=== PATIENT | female | born 1975 | race Caucasian/White ===

== ENCOUNTER 2020-10-26 02:08 | Outpatient (CLI) | payer BC, SELFPAY ==
[2020-10-26 11:15] LABS: Source Nasal/Nares
[2020-10-26 18:41] LABS: COVID-19 PCR Negative (Negative)
== END 2020-10-26 02:09 | disposition home or self-care (01) ==
PROVIDERS: PCP Emergency Medicine; Visit Provider Student in an Organized Health Care Education/Training Program
DX: Z20.822 Contact with and (suspected) exposure to COVID-19 (principal); Z01.818 Encounter for other preprocedural examination
CPT/HCPCS: 87635

== ENCOUNTER 2020-10-30 08:28 | Day surgery (SDC) | payer BC, SELFPAY ==
--- NOTE | 2020-10-30 07:25 | W.PM.DSUDISC ---
Discharge Plan Disposition Patient Disposition: HOME Condition: Good Discharge Details Reason For Visit: Right carpal tunnel syndrome Attending Provider: Gato Richardson Primary Care Provider: Dario Gale Home Meds and New Rx's Prescriptions: New acetaminophen 500 mg tablet 500 mg PO Q6H PRN (Reason: pain) Qty: 60 RF: 2 hydrocodone-acetaminophen 5-325 mg tablet 1 tab PO Q6H PRN (Reason: severe pain) Qty: 4 RF: 0 ibuprofen 600 mg tablet 600 mg PO TID PRN (Reason: pain) Qty: 60 RF: 0 Continued omeprazole 20 mg capsule,delayed release(DR/EC) 20 mg PO DAILY RF: 0 Discharge Instructions Stand Alone Forms: Debra Marc Tunnel Release Referrals: Gato Richardson MD [ [facility] STAFF PHYSICIAN] - Activity:: Elevate Remove Dressings/Wound Care:: 72 hours Shower/Bathe:: 72 hours Diet:: As Tolerated Discharge Orders Discharge Orders: Discharge Order (Routine); Ordered 10/30/20 Ordered By: Shonda Brown DS: Diagnosis Discharge Diagnosis (1) Right carpal tunnel syndrome: Status: Acute
[2020-10-30 08:50] VITALS: BP 111/56; PULSE 63; RESP 18; TEMP 36.6; O2SAT 100
[2020-10-30] MEDS: Lactated Ringers 1,000 ML 80 ML IV (09:19)
--- NOTE | 2020-10-30 09:23 | W.ANESPRE ---
General Info Date of Service Date Performed: 10/30/20 Height: 5 ft 2 in Weight: 77.5 kg Body Mass Index (BMI): 31.2 Surgical Procedure: Operation Date: 10/30/20 09:55 Proposed Procedures Side Surgeon p Wrist ECTR Right Gato Richardson MD Meds Allergies and Home Medications Allergies Allergy/AdvReac Type Severity Reaction Status Date / Time ampicillin Allergy Verified 10/30/20 08:47 Home Medication Medication Instructions Recorded omeprazole 20 mg capsule,delayed 20 mg PO DAILY 09/21/20 release acetaminophen 500 mg PO Q6H PRN #60 tab 10/30/20 hydrocodone-acetaminophen 1 tab PO Q6H PRN #4 tab 10/30/20 ibuprofen 600 mg PO TID PRN #60 tab 10/30/20 Current Visit Medications: Current Medications Generic Name Dose Route Start Last Admin Trade Name Freq PRN Reason Stop Dose Admin Acetaminophen 650 mg 10/30/20 07:23 Acetaminophen 325 Mg Tab PO Q4H PRN PRN Ringer's Solution 1,000 mls @ 80 mls/hr 10/30/20 06:00 10/30/20 09:19 IV 11/28/20 23:59 80 mls/hr INFUSION DARELL Administration IV Miscellaneous Supplies 1 each 10/30/20 06:00 Iv Access IV 11/28/20 23:59 DIRECTED DARELL Oxycodone HCl 5 mg 10/30/20 07:23 Oxycodone 5 Mg Tab PO Q3H PRN PRN Pain Sodium Chloride 0 ml 10/30/20 06:00 Normal Saline Flush 10 Ml Syr IV 11/28/20 23:59 PRN PRN Sodium Chloride 0 ml 10/30/20 06:00 Normal Saline 10 Ml Vial IJ 11/28/20 23:59 DIRECTED PRN Sterile Water 0 ml 10/30/20 06:00 Water,Injection,Sterile 10 Ml Vial IJ 11/28/20 23:59 DIRECTED PRN PFSH Active Problems Active Problems: Problem Status Onset Code Right carpal tunnel syndrome G56.01 Right lateral epicondylitis M77.11 Medical History Medical History Acid reflux Kidney stones with removal Right carpal tunnel syndrome Right lateral epicondylitis Surgical History Surgical History Hx of section Hx of knee surgery 2011 Hx of laparoscopy Tobacco Smoking/Tobacco Use Status: Former Tobacco Use Alcohol Alcohol Intake: current Alcohol intake frequency: holidays/special occasions only Substance Use Substance use type: does not use Vital Signs and Lab Results Vital Signs Most Recent Vital Signs in EMR: Most Recent Vital Signs Temp Pulse Resp BP Pulse Ox 36.6 C 63 18 111/56 L 100 10/30/20 08:50 10/30/20 08:50 10/30/20 08:50 10/30/20 08:50 10/30/20 08:50 Point of Care Results Point of Care Results: POC- Test(urine) Negative 10/30/20 09:20 Lab Results Blood Type / Crossmatch: No Data to Display Complete Blood Count: No Data to Display Complete Metabolic Panel: No Data to Display Liver Function Panel: No Data to Display Coagulation Panel: No Data to Display Cardiac Panel: No Data to Display Arterial Blood Gas: No Data to Display Venous Blood Gas: No Data to Display Pancreas Panel: No Data to Display Thyroid Panel: No Data to Display Infectious Disease: Coronavirus (COVID-19)(PCR) Negative (Negative) 10/26/20 10:41 10/26/20 Coronavirus 2019 Source Nasal/nares 10/26/20 10:41 10/26/20 Blood Cultures: No Data to Display Toxicology Panel: No Data to Display Panel: No Data to Display Anesthesia Assessment and Plan Anesthesia History Personal History: No History of Anesthesia Complications Family History: No Family History of Anesthesia Complications Exercise Tolerance Exercise Tolerance: Metabolic Equivalents>4 Pertinent Negatives Pertinent Negatives: No Symptoms of GERD, No Major Cardiovascular Symptoms or Complaints and No Major Pulmonary Symptoms or Complaints Cardiac & Pulmonary Exam Cardiac Exam: Normal S1/S2 Heart Sounds Pulmonary Exam: Clear Bilateral Breath Sounds Airway Exam Known Difficult Airway: No Mallampati Class: 1 Mouth Opening: Normal (> 3cm) Thyromental Distance: Greater than 3 cm Neck Range of Motion: Full ROM Neck Circumference: Normal Teeth Condition: Removable Dentures/Plates Upper and Edentulous ASA Classification ASA Score: ASA 2 Emergency Case?: No NPO Status NPO Status: NPO Clears >2 hours, Solids >8 hours Status Status: Not Relevant due to Medical History and Negative HCG Anesthesia Plan Resuscitation Status: Full Code Anesthesia Technique: General Anesthesia Airway Planned: Natural Airway Monitors Used: Standard Monitors
[2020-10-30 09:26] VITALS: BMI 31.2
--- NOTE | 2020-10-30 09:50 | HPE_ITS ---
Date of service: 10/30/20 Time of Service: 09:50 Assessment and Plan Assessment and plan (1) Right carpal tunnel syndrome: Status: Acute Assessment and plan: Alba 45-year-old who has right carpal tunnel syndrome. Please see the previous office note for complete details of her history and a complete clinical examination. She is doing well today without any other medical changes. She previously agreed to proceed with carpal tunnel release. Once again, I discussed the technical details of carpal tunnel release and that I perform an endoscopic release, but would make a larger, open, incision if necessary for visualization. I discussed the risks of the procedure to include, but not limited to, bleeding, infection, palmar pain, stiffness, damage to nerves, damage to vessels, damage to tendons, weakness, recurrence, and incomplete release. Given these risks, Alba desires to proceed. History of Present Illness History of Present Illness Chief Complaint: Right Carpal Tunnel Syndrome Narrative: Alba is a 45-year-old female seen previously for right hand n umbness and tingling. She has tried a host of conservative options but continues have numbness and tingling which bothers her and affects her daily function. She was diagnosed with carpal tunnel syndrome and elected proceed with surgery. She reports no change in her symptoms. She has had no significant medical history changes. No chest pain or shortness of breath. No sick contacts. Review of Systems All systems reviewed & are unremarkable except as noted in HPI and below PFSH Medical History Acid reflux Kidney stones with removal Right carpal tunnel syndrome Right lateral epicondylitis Sjogrens syndrome Surgical History Hx of section Hx of knee surgery 2010 Hx of laparoscopy Social History Smoking/Tobacco Use Status: Former Tobacco Use Quit Date: 06/01/09 Smoking risk assessment performed?: Yes Alcohol Intake: current Alcohol Intake frequency: holidays/special occasions only Substance use type: does not use Do you feel safe at home: Yes Do you feel safe in your relationship?: Yes Meds Allergies and Home Medications Allergies Allergy/AdvReac Type Severity Reaction Status Date / Time ampicillin Allergy Verified 10/30/20 08:47 Home Medications Medication Instructions Recorded Confirmed Type omeprazole 20 mg capsule,delayed 20 mg PO DAILY 09/21/20 10/30/20 History release acetaminophen 500 mg PO Q6H PRN #60 tab 10/30/20 Rx hydrocodone-acetaminophen 1 tab PO Q6H PRN #4 tab 10/30/20 Rx ibuprofen 600 mg PO TID PRN #60 tab 10/30/20 Rx Exam Const General: cooperative, healthy appearing, comfortable and no acute distress Resp Effort & Inspection: normal respiratory effort Auscultation: clear to auscultation bilaterally Cardio Rate: regular rate Rhythm: regular rhythm Results Last Vital Signs Temp 36.6 C 10/30/20 08:50 Pulse 63 10/30/20 08:50 Resp 18 10/30/20 08:50 BP 111/56 L 10/30/20 08:50 Pulse Ox 100 10/30/20 08:50
[2020-10-30] MEDS: Sodium Bicarbonate 50 MEQ/50 ML VIAL (10:06)
[2020-10-30 10:44] VITALS: BP 106/53; PULSE 73; RESP 16; TEMP 36.1; O2SAT 100
[2020-10-30 10:57] VITALS: BP 108/60; PULSE 65; RESP 16; TEMP 36; O2SAT 100
--- NOTE | 2020-10-30 11:25 | W.ANESPOSTOP ---
Postoperative Evaluation Date, Time and Location Date Performed: 10/30/20 Time Performed: 11:25 Patient Location: Day Surgery Unit Vital Signs Most Recent Imported Vital Signs: Most Recent Vital Signs Temp Pulse Resp BP Pulse Ox 36 C L 65 16 108/60 100 10/30/20 10:57 10/30/20 10:57 10/30/20 10:57 10/30/20 10:57 10/30/20 10:57 Pain Score Most Recent Pain Score: Most Recent Pain Score Pain Level 0 10/30/20 10:57 Assessment Mental Status: Awake (Alert & Oriented to Patient Baseline) Airway and Respiratory Function: Patent airway with normal (patient baseline) respiratory exam Cardiovascular Function: Hemodynamically Stable Hydration Status: Adequately Hydrated Nausea & Vomiting: No Nausea or Vomiting Pain: Pt. Denies Any Pain Peripheral Nerve Block: Patient did not receive a nerve block
--- NOTE | 2020-10-30 15:05 | NUR.NOTE ---
Called pt @ 1450 to f/u re: jerky movements. Pt reports that the movements are not worse and only a little better. Pt denies pain and does not verbalize any concern r/t movements. Pt encouraged to f/u katherine if movements should worsen or if she has any concerns, pt verbalized understanding. Viviana Mccollum CRNA made aware of this correspondence. Yane Parr RN.
--- NOTE | 2020-10-30 21:58 | W.PM.OP ---
Date of service: 10/30/20 Time of Service: 10:21 Operative Note Operative Note DATE OF PROCEDURE: 10/30/20 PRE-OP DIAGNOSIS: Right Carpal Tunnel Syndrome POST-OP DIAGNOSIS: same PROCEDURE: Right Endoscopic Carpal Tunnel Release SURGEON: Gato Richardson ANESTHESIA TYPE: General:No Airway Refer to Anesthesia Record ESTIMATED BLOOD LOSS: 0 PATHOLOGY: none sent TOURNIQUET TIME: 4 COMPLICATIONS: None Patient was transported to: same day Patient's condition: stable Indications: I have seen Alba in clinic for symptoms of carpal tunnel syndrome. The numbness, tingling, and pain limited function. Clinical exam findings raised the diagnosis of carpal tunnel syndrome. Nonoperative measures such as bracing, time, activity modifications had been tried but disability and pain persisted. I discussed carpal tunnel release with the patient. I reviewed the risks of the procedure to include, but not limited to, bleeding, infection, pain, stiffness, incomplete release, damage to nerves or vessels, persistent numbness, recurrence. Despite these risks, the patient elected to proceed. Findings: There was tightened carpal tunnel. This was dilated and released successfully with the endoscope with increased space within the tunnel. The antebrachial fascia was released proximally freeing the median nerve at the wrist. Procedure Description: Alba was greeted in the preoperative holding area where the correct side was identified and marked. The consent was reviewed with the patient and signed. The history and physical was updated. All questions were answered. She was taken back to the operating room. The patient was placed into the supine position on the operating room table with the right arm on an arm board. A nonsterile tourniquet was placed high onto the arm. All bony prominences were well padded. Prophylactic antibiotics in the form of Cefazolin were administered. The right arm was then prepped with Chloraprep and draped in a standard fashion with stockinette and extremity drape. A timeout to confirm correct identity, side and site, procedure, allergies, anesthesia, and medical concerns was performed. The surgical site was marked in the volar wrist creases in line with the radial border of the fourth ray. This area was anesthetized with approximately 6cc of 1% Lidocaine. The limb was then exsanguinated with an Esmarch. The skin was incised with a 15 blade, approximately 1cm. The skin only was cut and the deeper tissue was dissected bluntly with a tenotomy scissor, avoiding passing nerve and venous structures. The fascia was penetrated and opened bluntly. A two-prong skin hook was placed under this proximal fascial edge. A series of hamate finders were used to identify and dilate the carpal tunnel. Synovial elevator was used to free synovial attachments to the underside of the transverse carpal ligament. My thumb was kept in the palm to brigitte the distal extent of the carpal tunnel and correctly position the hand. The Microaire endoscope was inserted without difficulty and without resistance. Excellent visualization showed horizontally running fibers of the transverse carpal ligament (TCL). The distal extent of the TCL was visualized and the end of the scope palpated with the thumb. The blade was elevated and withdrawn from distal to proximal. The TCL was split into two flaps. The endoscope was reinserted to confirm complete release and any remnant ligament was incised. The scope was withdrawn and the proximal aspect of the carpal tunnel was grossly inspected and appeared release with the median nerve visible. The antebrachial fascia at the level of the wrist was then freed from the overlying skin and then the underlying median nerve with blunt dissection. This was transected longitudinally for about 3cm proximal to the wrist incision. The wound was then irrigated with easy flow of irrigant distally and proximally. The incision was closed with a single 4-0 Nylon suture. The wound was dressed with Xeroform, Gauze, Kerlix and Tom. The tourniquet was deflated with the initial dressing and held with some pressure. Blood flow returned easily to all digits with capillary refill less than 2 seconds. The patient tolerated the procedure well and was returned to the Same Day Surgery area in a stable condition suffering no known complication.
== END 2020-10-30 11:40 | disposition home or self-care (01) ==
LOC: SUR 08:29
PROVIDERS: PCP Emergency Medicine; Visit Provider Student in an Organized Health Care Education/Training Program
PROC: 01N54ZZ Release Median Nerve, Percutaneous Endoscopic Approach (ICD-10-PCS; CPT 29848; principal; 2020-10-30 09:45)
DX: G56.01 Carpal tunnel syndrome, right upper limb (principal)
CPT/HCPCS: 29848; 81025; J0690; J1885; J2001

== ENCOUNTER 2021-07-01 00:26 | Outpatient (CLI) | payer MEDICAID, SELFPAY ==
--- NOTE | 2021-07-01 06:15 | DI.US_ITS ---
Exam(s) US NEEDLE LOCAL OTHER WO RAD EXAM: US NEEDLE LOCAL OTHER WO RAD CLINICAL HISTORY: thyroid nodule tr4,ultrasound guided bx,e04.1. COMPARISON: No exams were available for comparison TECHNIQUE: Real-time ultrasound was provided for Dr. Chandra for guidance with performing biopsy of t hyroid nodule. FINDINGS: Solid nodule is again demonstrated in the right lobe of the thyroid. Biopsy procedure was performed by Dr. Chandra. Please see procedure note for details. DATA REPOSITORY:
--- NOTE | 2021-07-01 08:20 | PAPNONF_PTH ---
PATIENT: Alba Russell LOC: [facility] U#:[id number] AGE/SX: 46/F ROOM: RE07/01/[address]: Jos Chandra MD : 1975 BED: DIS: 07/01/2021 SPEC #: [id number] RECD: 07/01/21 12:49 STATUS: DAMI REDoreen #: [id number] MARIA DOLORES: 07/01/21 08:[address]: Jos Chandra [facility] Cytology RECD BY: Annette Hutchinson ENTERED: 07/01/21 12:50 SP TYPE: [address] DR: Kathleen Haro Tissues: 1 - BODY FLUID CYTO-FINE NEEDLE [facility] Procedures: BODY FLUID CYTO-FINE NEEDLE [facility] Comments: [id number]
--- NOTE | 2021-07-01 10:24 | W.PROCNOTE ---
Procedure Note Date of procedure: 07/01/21 Procedure: Ultrasound-guided FNA, right thyroid nodule Surgeon/Proceduralist/Physician: Jos Chandra Procedure Diagnosis: Right thyroid nodule TR 4, 2.4 cm in diameter Procedure Indications: The patient has a right-sided thyroid nodule which is a TR 4 meeting criteria for biopsy. Options were explained to the patient regarding further management. She elected to undergo above procedure. Consent was filled out and signed prior to the below. Procedure Description: The patient was placed in the supine position and prepped and draped in appropriate fashion. Ultrasound was used to localize the right-sided thyroid nodule, and then 1% lidocaine with 1/100,000 epinephrine was injected into the skin and subcutaneous tissues overlying the right thyroid nodule. A 25-gauge needle was then advanced into the thyroid nodule, and FNA was performed. 1 pass were performed for FNA, and 2 passes for potential Afirma. Cellular adequacy was checked by pathology. The patient tolerated the procedure well. There is no significant bruising or bleeding. After ensuring adequate hemostasis, a sterile dressing was applied. The patient was then sat up and then let ambulate. She ambulated without difficulty. She will call if she does not hear from me within 7 days with regard to pathology. I was present throughout the entire procedure.
== END 2021-07-01 00:46 ==
PROVIDERS: PCP Family Medicine; Visit Provider Otolaryngology
DX: E04.1 Nontoxic single thyroid nodule (principal)
CPT/HCPCS: 10005; 76942; 88104

== ENCOUNTER 2021-08-15 11:02 | Outpatient (CLI) | payer MEDICAID, SELFPAY ==
--- NOTE | 2021-08-15 10:30 | DI.RAD_ITS ---
Exam(s) XR SHOULDER LT COMPLETE 2+V EXAM: XR SHOULDER LT COMPLETE 2+V CLINICAL HISTORY: acute traumatic injury. TECHNIQUE: 2D digital imaging was performed. COMPARISON: No exams were available for comparison FINDINGS: Two views No evidence of fracture or dislocation nor joint space narrowing. Slight upward subluxation of the h umeral head in the glenoid fossa noted but the subacromial space does not appear diminished and there no soft tissue calcifications within the subacromial space. Coracoid process is intact. Bone densi ty normal. No osteophytes. No osseous lesions. IMPRESSION: Mild findings as described above. DATA REPOSITORY: RADIATION DOSE DELIVERED:
== END 2021-08-15 11:03 | disposition home or self-care (01) ==
LOC: DIORS 11:03
PROVIDERS: PCP Family Medicine; Visit Provider Physician Assistant Surgical
DX: S49.82XA Other specified injuries of left shoulder and upper arm, initial encounter; M25.512 Pain in left shoulder; S43.082A Other subluxation of left shoulder joint, initial encounter; X58.XXXA Exposure to other specified factors, initial encounter
CPT/HCPCS: 73030

== ENCOUNTER 2021-09-09 02:08 | Outpatient (CLI) | payer MEDICAID, SELFPAY ==
[2021-09-09 12:09] LABS: Source Nasal/Nares
[2021-09-09 14:45] LABS: COVID-19 PCR Negative (Negative)
== END 2021-09-09 02:09 | disposition home or self-care (01) ==
LOC: LBO 02:08
PROVIDERS: PCP Family Medicine; Visit Provider Student in an Organized Health Care Education/Training Program
DX: Z20.822 Contact with and (suspected) exposure to COVID-19 (principal); Z01.818 Encounter for other preprocedural examination
CPT/HCPCS: 87635

== ENCOUNTER 2021-09-11 09:46 | Day surgery (SDC) | payer MEDICAID, SELFPAY ==
[2021-09-11] MEDS: Lactated Ringers 1,000 ML 80 ML IV (10:19)
[2021-09-11 10:20] VITALS: BP 107/41; PULSE 66; RESP 16; TEMP 36.4; O2SAT 100
--- NOTE | 2021-09-11 11:06 | ANES.PREOP_ITS ---
General Info Date of Service Date Performed: 09/11/21 Height: 5 ft 2 in Weight: 73.4 kg Body Mass Index (BMI): 29.5 Surgical Procedure: Operation Date: 09/11/21 13:25 Proposed Procedure Side Surgeon p Shoulder Manipulation Left Gato Richardson MD Meds Allergies and Home Medications Allergies Allergy/AdvReac Type Severity Reaction Status Date / Time ampicillin Allergy Verified 09/11/21 10:12 sulfamethoxazole Allergy Verified 09/11/21 10:12 Home Medication Medication Instructions Recorded acetaminophen 500 mg tablet 500 mg PO Q6H PRN #60 tab 10/30/20 ibuprofen 600 mg tablet 600 mg PO TID PRN #60 tab 10/30/20 levothyroxine 50 mcg tablet 50 mcg PO DAILY 05/10/21 (Synthroid) melatonin 5 mg chewable tablet 5 mg PO HS PRN 05/10/21 omeprazole 40 mg capsule,delayed 40 mg PO DAILY 05/10/21 release hydroxychloroquine 200 mg tablet 200 mg PO BID 08/15/21 (Plaquenil) Current Visit Medications: Current Medications Generic Name Dose Route Start Last Admin Trade Name Freq PRN Reason Stop Dose Admin Ringer's Solution 1,000 mls @ 80 mls/hr 09/11/21 06:00 09/11/21 10:19 IV 09/11/21 23:59 80 mls/hr INFUSION DARELL Administration IV Miscellaneous Supplies 1 each 09/11/21 06:00 Iv Access IV 09/11/21 23:59 DIRECTED DARELL Sodium Chloride 0 ml 09/11/21 06:00 Normal Saline Flush 10 Ml Syr IV 09/11/21 23:59 PRN PRN Sodium Chloride 0 ml 09/11/21 06:00 Normal Saline 10 Ml Vial IJ 09/11/21 23:59 DIRECTED PRN Sterile Water 0 ml 09/11/21 06:00 Water,Injection,Sterile 10 Ml Vial IJ 09/11/21 23:59 DIRECTED PRN PFSH Active Problems Active Problems: Problem Status Onset Code Adhesive capsulitis of left shoulder M75.02 Right carpal tunnel syndrome G56.01 Right lateral epicondylitis M77.11 Medical History Medical History Abnormal weight loss Acid reflux Altered bowel habits Anemia due to blood loss Atypical nevus Autoimmune neutropenia Chronic neutropenia GERD with esophagitis GERD without esophagitis Hypothyroidism Iron deficiency anemia due to chronic blood loss Kidney stones with removal shelter current use of immunosuppressive drug Osteoarthritis Pharyngoesophageal dysphagia Primary Sjogren's syndrome Sjogrens syndrome Systemic involvement of connective tissue, unspecified Thyroid nodule Thyromegaly Ureteral calculus Vitamin B12 deficiency Vitamin D deficiency, unspecified Surgical History Surgical History Hx of section Hx of knee surgery 2011 Hx of laparoscopy Tobacco Smoking/Tobacco Use Status: Former Tobacco Use Alcohol Alcohol Intake: current Alcohol intake frequency: holidays/special occasions only Substance Use Substance use type: does not use Vital Signs and Lab Results Vital Signs Most Recent Vital Signs in EMR: Most Recent Vital Signs Temp Pulse Resp BP Pulse Ox 36.4 C L 66 16 107/41 L 100 09/11/21 10:20 09/11/21 10:20 09/11/21 10:20 09/11/21 10:20 09/11/21 10:20 Lab Results Blood Type / Crossmatch: No Data to Display Complete Blood Count: 2 No Data to Display Complete Metabolic Panel: No Data to Display Liver Function Panel: No Data to Display Coagulation Panel: No Data to Display Cardiac Panel: No Data to Display Arterial Blood Gas: No Data to Display Venous Blood Gas: No Data to Display Pancreas Panel: No Data to Display Thyroid Panel: No Data to Display Infectious Disease: Coronavirus (COVID-19)(PCR) Negative (Negative) 09/09/21 10:31 09/09/21 Coronavirus 2019 Source Nasal/Nares 09/09/21 10:31 09/09/21 Blood Cultures: No Data to Display Toxicology Panel: No Data to Display Panel: No Data to Display Anesthesia Assessment and Plan Anesthesia History Personal History: No History of Anesthesia Complications Family History: No Family History of Anesthesia Complications Exercise Tolerance Exercise Tolerance: Metabolic Equivalents>4 Pertinent Negatives Pertinent Negatives: No Symptoms of GERD (well controlled ), No Major Cardiovascular Symptoms or Complaints, No Major Pulmonary Symptoms or Complaints and No History of CVA/TIA Cardiac & Pulmonary Exam Cardiac Exam: Normal S1/S2 Heart Sounds Pulmonary Exam: Clear Bilateral Breath Sounds Implantable Cardiac Device Does patient have a Pacemaker or an ICD?: No Airway Exam Known Difficult Airway: No Mallampati Class: 1 Mouth Opening: Normal (> 3cm) Thyromental Distance: Greater than 3 cm Neck Range of Motion: Full ROM Neck Circumference: Normal Teeth Condition: Removable Dentures/Plates Upper and Edentulous ASA Classification ASA Score: ASA 2 Emergency Case?: No NPO Status NPO Status: NPO Clears >2 hours, Solids >8 hours Status Status: Negative HCG Anesthesia Plan Resuscitation Status: Full Code Anesthesia Technique: General Anesthesia Airway Planned: Natural Airway Monitors Used: Standard Monitors
[2021-09-11 11:09] VITALS: BMI 29.5
--- NOTE | 2021-09-11 11:13 | W.ANESPRE ---
General Info Date of Service Date Performed: 09/11/21 Height: 5 ft 2 in Weight: 73.4 kg Body Mass Index (BMI): 29.5 Surgical Procedure: Operation Date: 09/11/21 13:25 Proposed Procedure Side Surgeon p Shoulder Manipulation Left Gato Richardson MD Meds Allergies and Home Medications Allergies Allergy/AdvReac Type Severity Reaction Status Date / Time ampicillin Allergy Verified 09/11/21 10:12 sulfamethoxazole Allergy Verified 09/11/21 10:12 Home Medication Medication Instructions Recorded acetaminophen 500 mg tablet 500 mg PO Q6H PRN #60 tab 10/30/20 ibuprofen 600 mg tablet 600 mg PO TID PRN #60 tab 10/30/20 levothyroxine 50 mcg tablet 50 mcg PO DAILY 05/10/21 (Synthroid) melatonin 5 mg chewable tablet 5 mg PO HS PRN 05/10/21 omeprazole 40 mg capsule,delayed 40 mg PO DAILY 05/10/21 release hydroxychloroquine 200 mg tablet 200 mg PO BID 08/15/21 (Plaquenil) Current Visit Medications: Current Medications Generic Name Dose Route Start Last Admin Trade Name Freq PRN Reason Stop Dose Admin Ringer's Solution 1,000 mls @ 80 mls/hr 09/11/21 06:00 09/11/21 10:19 IV 09/11/21 23:59 80 mls/hr INFUSION DARELL Administration IV Miscellaneous Supplies 1 each 09/11/21 06:00 Iv Access IV 09/11/21 23:59 DIRECTED DARELL Sodium Chloride 0 ml 09/11/21 06:00 Normal Saline Flush 10 Ml Syr IV 09/11/21 23:59 PRN PRN Sodium Chloride 0 ml 09/11/21 06:00 Normal Saline 10 Ml Vial IJ 09/11/21 23:59 DIRECTED PRN Sterile Water 0 ml 09/11/21 06:00 Water,Injection,Sterile 10 Ml Vial IJ 09/11/21 23:59 DIRECTED PRN PFSH Active Problems Active Problems: Problem Status Onset Code Adhesive capsulitis of left shoulder M75.02 Right carpal tunnel syndrome G56.01 Right lateral epicondylitis M77.11 Medical History Medical History Abnormal weight loss Acid reflux Altered bowel habits Anemia due to blood loss Atypical nevus Autoimmune neutropenia Chronic neutropenia GERD with esophagitis GERD without esophagitis Hypothyroidism Iron deficiency anemia due to chronic blood loss Kidney stones with removal halfway current use of immunosuppressive drug Osteoarthritis Pharyngoesophageal dysphagia Primary Sjogren's syndrome Sjogrens syndrome Systemic involvement of connective tissue, unspecified Thyroid nodule Thyromegaly Ureteral calculus Vitamin B12 deficiency Vitamin D deficiency, unspecified Surgical History Surgical History Hx of section Hx of knee surgery 2011 Hx of laparoscopy Tobacco Smoking/Tobacco Use Status: Former Tobacco Use Alcohol Alcohol Intake: current Alcohol intake frequency: holidays/special occasions only Substance Use Substance use type: does not use Vital Signs and Lab Results Vital Signs Most Recent Vital Signs in EMR: Most Recent Vital Signs Temp Pulse Resp BP Pulse Ox 36.4 C L 66 16 107/41 L 100 09/11/21 10:20 09/11/21 10:20 09/11/21 10:20 09/11/21 10:20 09/11/21 10:20 Lab Results Blood Type / Crossmatch: No Data to Display Complete Blood Count: No Data to Display Complete Metabolic Panel: No Data to Display Liver Function Panel: No Data to Display Coagulation Panel: No Data to Display Cardiac Panel: No Data to Display Arterial Blood Gas: No Data to Display Venous Blood Gas: No Data to Display Pancreas Panel: No Data to Display Thyroid Panel: No Data to Display Infectious Disease: Coronavirus (COVID-19)(PCR) Negative (Negative) 09/09/21 10:31 09/09/21 Coronavirus 2019 Source Nasal/Nares 09/09/21 10:31 09/09/21 Blood Cultures: No Data to Display Toxicology Panel: No Data to Display Panel: No Data to Display Anesthesia Assessment and Plan Anesthesia History Personal History: No History of Anesthesia Complications Family History: No Family History of Anesthesia Complications Exercise Tolerance Exercise Tolerance: Metabolic Equivalents>4 Pertinent Negatives Pertinent Negatives: No Symptoms of GERD, No Major Cardiovascular Symptoms or Complaints, No Major Pulmonary Symptoms or Complaints and No History of CVA/TIA Cardiac & Pulmonary Exam Cardiac Exam: Normal S1/S2 Heart Sounds Pulmonary Exam: Clear Bilateral Breath Sounds Implantable Cardiac Device Does patient have a Pacemaker or an ICD?: No Airway Exam Known Difficult Airway: No Mallampati Class: 1 Mouth Opening: Normal (> 3cm) Thyromental Distance: Greater than 3 cm Neck Range of Motion: Full ROM Neck Circumference: Normal Teeth Condition: Removable Dentures/Plates Upper and Edentulous ASA Classification ASA Score: ASA 2 Emergency Case?: No NPO Status NPO Status: NPO Clears >2 hours, Solids >8 hours Status Status: Negative HCG Anesthesia Plan Resuscitation Status: Full Code Anesthesia Technique: General Anesthesia Airway Planned: Natural Airway Pain Management: Surgeon and patient request nerve block Monitors Used: Standard Monitors
[2021-09-11 11:15] VITALS: BMI 29.5
--- NOTE | 2021-09-11 11:38 | W.PREOPHP ---
Assessment and Plan Assessment and plan (1) Adhesive capsulitis of left shoulder: Status: Acute Assessment and plan: Alba is a 46 yo female with adhesive capsulitis of the left shoulder. She has failed conservative options and due to the restricted motion and pain I recommend manipulation under anesthesia. I reviewed the risks of the procedure and she elects to proceed. History of Present Illness Narrative: Left Shouder Adhesive Capsulitis. She has had significant restriction with her range of motion and with pain. Please see previous office note for a detailed report. Review of Systems All systems reviewed & are unremarkable except as noted in HPI and below PFSH All Active Problems Adhesive capsulitis of left shoulder (Acute) Right carpal tunnel syndrome (Acute) S/P ECTR: 10/30/2020 Right lateral epicondylitis (Acute) Medical History Abnormal weight loss Acid reflux Altered bowel habits Anemia due to blood loss Atypical nevus Autoimmune neutropenia Chronic neutropenia GERD with esophagitis GERD without esophagitis Hypothyroidism Iron deficiency anemia due to chronic blood loss Kidney stones with removal skilled nursing current use of immunosuppressive drug Osteoarthritis Pharyngoesophageal dysphagia Primary Sjogren's syndrome Sjogrens syndrome Systemic involvement of connective tissue, unspecified Thyroid nodule Thyromegaly Ureteral calculus Vitamin B12 deficiency Vitamin D deficiency, unspecified Surgical History Hx of section Hx of knee surgery 2010 Hx of laparoscopy Family History Father Cancer COPD (chronic obstructive pulmonary disease) Mother Heart disease Social History Smoking/Tobacco Use Status: Former Tobacco Use Quit Date: 06/01/09 Smoking risk assessment performed?: Yes Alcohol Intake: current Alcohol Intake frequency: holidays/special occasions only Substance use type: does not use Do you feel safe at home: Yes Do you feel safe in your relationship?: Yes Meds Allergies and Home Medications Allergies Allergy/AdvReac Type Severity Reaction Status Date / Time ampicillin Allergy Verified 09/11/21 10:12 sulfamethoxazole Allergy Verified 09/11/21 10:12 Home Medications Medication Instructions Recorded Confirmed Type acetaminophen 500 mg tablet 500 mg PO Q6H PRN #60 tab 10/30/20 09/11/21 Rx ibuprofen 600 mg tablet 600 mg PO TID PRN #60 tab 10/30/20 09/09/21 Rx levothyroxine 50 mcg tablet 50 mcg PO DAILY 05/10/21 09/11/21 History (Synthroid) melatonin 5 mg chewable tablet 5 mg PO HS PRN 05/10/21 09/11/21 History omeprazole 40 mg capsule,delayed 40 mg PO DAILY 05/10/21 09/11/21 History release hydroxychloroquine 200 mg tablet 200 mg PO BID 08/15/21 09/11/21 History (Plaquenil) Exam Resp Auscultation: clear to auscultation bilaterally Cardio Rate: regular rate Rhythm: regular rhythm Results Last Vital Signs Temp 36.4 C L 09/11/21 10:20 Pulse 66 09/11/21 10:20 Resp 16 09/11/21 10:20 BP 107/41 L 09/11/21 10:20 Pulse Ox 100 09/11/21 10:20
--- NOTE | 2021-09-11 12:10 | W.ANESNERVE ---
Nerve Block Single Injection Procedure Date and Time Date Performed: 09/11/21 Procedure Start: 11:54 Location Where Procedure Performed Procedure Location: PACU Reason Performed: Postoperative Analgesia Requesting Provider: Gato Richardson Timeout Performed Timeout Performed: Yes Monitoring Used ECG, Blood Pressure and SpO2 Sterility Sterility: Hand Hygiene, Surgical Cap, Surgical Mask, Sterile Gloves and Chlorhexidine Sedation Given During Procedure Sedation Given (Indicate Dose Given): Versed IV Dose:: 2 mg Patient Mental Status Patient Mental Status: Sedate with meaningful communication Nerve Block 1st Nerve Block: Laterality: Left Block Type: Interscalene Needle / Catheter Used: 100mm SonoPlex II Local Anesthetic Bolus (Indicate Dose Given): Lidocaine used for local infiltration of skin, Injected in 3-5ml increments after negative blood aspiration and Bupivacaine 0.5% Dose:: 20 ml Additives (Indicate Dose Given): None Ultrasound: Sterile probe cover and gel used Ultrasound Image Saved?: Yes Nerve Stimulator: Not Used Paresthesia: None Procedure Tolerated: No Complications and Patient tolerated well Procedure Outcome: Successful Performed By: Pj Yan
--- NOTE | 2021-09-11 12:34 | PDOC.DSDIS_ITS ---
Discharge Plan Disposition Patient Disposition: HOME Condition: Good Discharge Details Reason For Visit: L shoulder manipulation Attending Provider: Gato Richardson Primary Care Provider: Kathleen Haro Home Meds and New Rx's Prescriptions: New acetaminophen 500 mg tablet 1,000 mg PO TID Qty: 90 0RF ibuprofen 600 mg tablet 600 mg PO TID PRN (Reason: pain) Qty: 90 0RF Continued hydroxychloroquine [Plaquenil] 200 mg tablet 200 mg PO BID 0RF melatonin 5 mg tablet,chewable 5 mg PO HS PRN0RF levothyroxine [Synthroid] 50 mcg tablet 50 mcg PO DAILY 0RF omeprazole 40 mg capsule,delayed release(DR/EC) 40 mg PO DAILY 0RF acetaminophen 500 mg tablet 500 mg PO Q6H PRN (Reason: pain) Qty: 60 2RF ibuprofen 600 mg tablet 600 mg PO TID PRN (Reason: pain) Qty: 60 0RF Discharge Instructions Additional Instructions: Shoulder Manipulation Discharge Instructions Activity: You should begin moving as soon as possible. You may remove the sling as soon as you feel comfortable without it. You may work on range of motion of the shoulder right away. You should apply ice to help with swelling (especially in the first few days). Dressings: N/A Medications: - Rarely does this require any stronger pain medications. - Recommend to take up to 1000mg of Acetaminophen (Tylenol) and 600mg of Ibuprofen (Advil) every 8 hours as needed. These larger strength tablets were called in but you also may use [id number]. Follow-up: 7-10 days Referrals: Gato Richardson MD [ [facility] STAFF PHYSICIAN] - Equipment/Supplies: Sling Activity:: Activity as Tolerated Diet:: As Tolerated Discharge Orders Discharge Orders: Discharge Order (Routine); Ordered 09/11/21 Ordered By: Vern Parr DS: Diagnosis Discharge Diagnosis (1) Adhesive capsulitis of left shoulder: Status: Acute
[2021-09-11 13:27] VITALS: BP 112/67; PULSE 67; RESP 24; TEMP 36.5; O2SAT 97
[2021-09-11 13:32] VITALS: BP 109/59; PULSE 66; RESP 18; TEMP 36.5; O2SAT 98
[2021-09-11 13:37] VITALS: BP 109/61; PULSE 62; RESP 17; TEMP 36.5; O2SAT 97
--- NOTE | 2021-09-11 13:46 | W.ANESPOSTOP ---
Postoperative Evaluation Date, Time and Location Date Performed: 09/11/21 Time Performed: 13:46 Patient Location: PACU Vital Signs Most Recent Imported Vital Signs: Most Recent Vital Signs Temp Pulse Resp BP Pulse Ox 36.5 C 62 17 109/61 97 09/11/21 13:37 09/11/21 13:37 09/11/21 13:37 09/11/21 13:37 09/11/21 13:37 Pain Score Most Recent Pain Score: Most Recent Pain Score Pain Level 0 09/11/21 13:37 Assessment Mental Status: Awake (Alert & Oriented to Patient Baseline) Airway and Respiratory Function: Patent airway with normal (patient baseline) respiratory exam Cardiovascular Function: Hemodynamically Stable Hydration Status: Adequately Hydrated Nausea & Vomiting: Active Nausea or Vomiting Present Nausea and Vomiting Management: Nausea present without vomiting, patient wishes to be discharged Pain: Pt. Denies Any Pain Peripheral Nerve Block: Regional nerve block not resolved at time of post operative discharge
[2021-09-11 13:57] VITALS: BP 106/61; PULSE 58; RESP 16; TEMP 36.3; O2SAT 98
[2021-09-11 14:28] VITALS: BP 105/61; PULSE 55; RESP 16; TEMP 36.8; O2SAT 98
--- NOTE | 2021-09-14 14:24 | W.PM.OP ---
Date of service: 09/11/21 Time of Service: 13:00 Operative Note Operative Note DATE OF PROCEDURE: 02/02/18 PRE-OP DIAGNOSIS: Left Shoulder Adhesive Capsulitis POST-OP DIAGNOSIS: same PROCEDURE: Left Shoulder Manipulation Under Anesthesia SURGEON: Gato Richardson ANESTHESIA TYPE: General LMA/ETT Refer to Anesthesia Record ESTIMATED BLOOD LOSS: 0 PATHOLOGY: none sent COMPLICATIONS: None Patient was transported to: PACU Patient's condition: stable Indications: Alba is a 46 year old female with adhesive capsulitis of the shoulder. A trial of nonoperative and conservative treatment options were attempted without improvement. Given the persistence of dysfunction, I recommended a manipulation under anesthesia with injection. I discussed the risk of the procedure to include recurrence, stiffness, weakness, tendon rupture, fracture. Despite these risks, the patient elects to proceed. Findings: PREOP RANGE OF MOTION: Abduction = 50, Forward Flexion = 70, External Rotation = 5 POSTOP RANGE OF MOTION: Abduction = 170, Forward Flexion = [180], External Rotation = 65 Procedure Description: Alba was greeted in the preoperative holding area. Consent was reviewed with the patient and signed. History physical was updated. Correct site was marked. Anesthesia provided a interscalene peripheral nerve block. Alba was then transferred back to the operative suite. The correct site was identified and a timeout was performed for safety and per hospital protocol. A general anesthetic was administered. Preoperative range of motion was checked and is noted in the above findings section. The manipulation was then performed in standard protocol focusing first on forward flexion, followed by abduction, followed by external rotation. This was cycled through a few times with notable crepitus and adhesion disruption both audible and palpable. Postoperative range of motion was then measured and is documented above in the findings. A simple sling was applied. Alba tolerated procedure well and was transferred back to the PACU in stable condition. Physical therapy will begin immediately with home-based exercises and then proceeding to physical therapy tomorrow.
== END 2021-09-11 14:59 | disposition home or self-care (01) ==
PROVIDERS: PCP Family Medicine; Visit Provider Student in an Organized Health Care Education/Training Program
PROC: (CPT 23700; principal; 2021-09-11 13:15)
DX: M75.02 Adhesive capsulitis of left shoulder (principal); K21.9 Gastro-esophageal reflux disease without esophagitis; E03.9 Hypothyroidism, unspecified; D50.9 Iron deficiency anemia, unspecified; M35.00 Sjogren syndrome, unspecified; D70.8 Other neutropenia
CPT/HCPCS: 23700; 76942; J1885; J2405

== ENCOUNTER 2022-07-28 09:59 | Day surgery (SDC) | payer BC, MEDICAID, SELFPAY ==
--- NOTE | 2022-07-27 19:25 | PDOC.DSDIS_ITS ---
Date of service: 07/28/22 Time of Service: 13:48 Discharge Plan Disposition Patient Disposition: Home Condition: Good Discharge Details Reason For Visit: EGD Attending Provider: Lalo Hayden Primary Care Provider: Kathleen Haro Home Meds and New Rx's Prescriptions: Continued hydroxychloroquine [Plaquenil] 200 mg tablet 200 mg PO BID levothyroxine [Synthroid] 50 mcg tablet 50 mcg PO DAILY omeprazole 40 mg capsule,delayed release(DR/EC) 40 mg PO DAILY acetaminophen 500 mg tablet 500 mg PO Q6H PRN (Reason: pain) Qty: 60 2RF amitriptyline 10 mg Tablet 1 - 2 mg PO HS Discharge Instructions Additional Instructions: Alba, we were able to complete your upper endoscopy today without any difficulty. You had a little bit of bile in your stomach that can occasionally cause pain in the stomach. Otherwise, your stomach looked totally normal. I did not see any signs of inflammation or anything worrisome. Similarly, the area near your gastroesophageal junction looks normal to me. The connection to the esophagus down onto the stomach is right where it should be, and it does not have any worrisome signs of inflammation. I did perform some random biopsy along the upper part of your esophagus to see if there is anything that is not apparent to my eye. As we talked about in the office, it is a little bit difficult to see the area where you are experiencing symptoms of swallowing difficulty. But, generally, it looked normal to me. I think that the next most reasonable step would be the modified barium swallow that Dr. Chandra had mentioned in his recommendations. If you prefer to wait until the biopsy results are final, we can discuss it at that time. 1. If tolerated, consume a soft, low fiber diet for 1-2 days. [address] Do not drive, drink alcohol, operate machinery, make critical decisions, or do activities that require coordination or balance for 24 hours. 3. You may experience a sore throat for 24 to 48 hours. You may use throat favio enges or gargle with warm salt water to relieve the discomfort. 4. Because air was put into your stomach during the procedure, you may experience some belching. 5. Go directly to the emergency room if you notice any of the following: Develop chills (warm to touch), or if you have a thermometer and your temperature is above 101 Difficulty breathing or difficultly swallowing Persistent vomiting Severe abdominal pain, other than gas cramps Severe chest pain Black, tarry stools Any bleeding ? exceeding one tablespoon 6. Call your physician if the site where your intravenous was started becomes red, swollen, painful, and warm to touch. 7. Your physician has reviewed your pre-procedure medications. Please continue to take those medications as previously ordered. You will be given specific information/education regarding any changes to your medications before leaving. Activity:: Activity as Tolerated Diet:: As Tolerated Discharge Orders Discharge Orders: Discharge Order (Routine); Ordered 07/27/22 Ordered By: Lalo Hayden DS: Diagnosis Discharge Diagnosis (1) Dysphagia: Status: Acute Asessment and Plan: Follow-up on biopsy results
--- NOTE | 2022-07-27 19:28 | W.PM.ENDDOP ---
Date of service: 07/28/22 Time of Service: 13:13 Endoscopy Report DATE OF PROCEDURE: 07/28/22 PRE-OP DIAGNOSIS: Dysphagia POST-OP DIAGNOSIS: same PROCEDURE: EGD SURGEON: Lalo Hayden ANESTHESIA TYPE: General:No Airway ESTIMATED BLOOD LOSS: 0 PATHOLOGY: other (Esophageal biopsies) COMPLICATIONS: None DISPOSITION: same day INDICATIONS: Alba is a 47 year old woman with dysphagia and longstanding GERD PROCEDURE START TIME: 13:03 PROCEDURE END TIME: 13:13 FINDINGS: Z-line at 36 cm normal, multiple esophageal biopsies PROCEDURE DESCRIPTION: After the initiation of monitored anesthetic care, and with the assistance of a bite block, I advanced a standard gastroscope through the mouth past the hypopharynx and into the esophagus.? Under the direct vision of the scope, I advanced down the esophagus into the stomach.? Once I entered the stomach, I performed a brief inspection, followed by retroflexion towards the gastric cardia.? This appeared normal.? After that, I gently advanced the scope around the incisura angularis and examined the pylorus.? This also appeared normal.? Based on her upper GI symptoms, I felt the most important thing to do at this point was turned my attention to the esophagus proper. I began retracting the endoscope.? The Z-line and GE junction were normal-appearing at 36 cm. There were no strictures or webs. I withdrew the endoscope along the length of the esophagus which appeared normal to me. I did perform multiple random biopsies of the esophagus. There was normal anatomic extrinsic compression around the midesophagus in the area of the tracheal bifurcation. There was no evidence of narrowing. The scope passed easily. I was able to withdraw the scope up to the level of the upper esophageal sphincter mechanism. This appeared normal. I did not see any evidence Zenker's diverticulum. I brought the scope up above here, it was a bit difficult to evaluate the rest of the hypopharynx based on the typical limitations of EGD. Grossly, however, this all appeared normal. I do think should benefit from a modified barium swallow to help better define anatomy in the hypopharynx, and more importantly the swallowing mechanism.
[2022-07-28 10:26] VITALS: BP 125/55; PULSE 78; RESP 16; TEMP 36.2; O2SAT 100
[2022-07-28] MEDS: Lactated Ringers 1,000 ML 80 ML IV (10:30)
[2022-07-28 11:36] VITALS: BMI 33.7
--- NOTE | 2022-07-28 11:36 | W.ANESPRE ---
General Info Date of Service Date Performed: 07/28/22 Height: 5 ft 2 in Weight: 83.7 kg Body Mass Index (BMI): 33.7 Surgical Procedure: Operation Date: 07/28/22 12:05 Proposed Procedure Side Surgeon p Gastroscopy Lalo Hayden MD Meds Allergies and Home Medications Allergies Allergy/AdvReac Type Severity Reaction Status Date / Time ampicillin Allergy Verified 07/25/22 15:51 sulfamethoxazole AdvReac Verified 07/25/22 15:51 Home Medication Medication Instructions Recorded acetaminophen 500 mg tablet 500 mg PO Q6H PRN pain #60 tabs 10/30/20 levothyroxine 50 mcg tablet 50 mcg PO DAILY 05/10/21 (Synthroid) omeprazole 40 mg capsule,delayed 40 mg PO DAILY 05/10/21 release hydroxychloroquine 200 mg tablet 200 mg PO BID 08/15/21 (Plaquenil) amitriptyline 10 mg tablet 1 - 2 mg PO HS sleep 07/28/22 Current Visit Medications: Current Medications Generic Name Dose Route Start Last Admin Trade Name Ovi PRN Reason Stop Dose Admin Ringer's Solution 1,000 mls @ 80 mls/hr 07/28/22 06:00 07/28/22 10:30 IV 08/24/22 23:59 80 mls/hr INFUSION DARELL Administration IV Miscellaneous Supplies 1 each 07/28/22 06:00 Iv Access IV 08/24/22 23:59 DIRECTED DARELL Sodium Chloride 0 ml 07/28/22 06:00 Normal Saline Flush 10 Ml Syr IV 08/24/22 23:59 PRN PRN Sodium Chloride 0 ml 07/28/22 06:00 Normal Saline 10 Ml Vial IJ 08/24/22 23:59 DIRECTED PRN Sterile Water 0 ml 07/28/22 06:00 Water,Injection,Sterile 10 Ml Vial IJ 08/24/22 23:59 DIRECTED PRN PFSH Active Problems Active Problems: Problem Status Onset Code Dysphagia R13.10 Right lateral epicondylitis M77.11 Right carpal tunnel syndrome G56.01 Adhesive capsulitis of left shoulder M75.02 Medical History Medical History Abnormal weight loss Acid reflux Altered bowel habits Anemia due to blood loss Atypical nevus Autoimmune neutropenia Chronic neutropenia GERD with esophagitis GERD without esophagitis Hypothyroidism Iron deficiency anemia due to chronic blood loss Kidney stones with removal 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 Osteoarthritis Pharyngoesophageal dysphagia Primary Sjogren's syndrome Sjogrens syndrome Systemic involvement of connective tissue, unspecified Sjogrens Syndrome Thyroid nodule Thyromegaly Ureteral calculus Vitamin B12 deficiency Vitamin D deficiency, unspecified Surgical History Surgical History Hx of section Hx of knee surgery 2011 Hx of laparoscopy Tobacco Smoking/Tobacco Use Status: Former Tobacco Use Alcohol Alcohol Intake: current Alcohol intake frequency: holidays/special occasions only Substance Use Substance use: Never Substance use type: does not use Vital Signs and Lab Results Vital Signs Most Recent Vital Signs in EMR: Most Recent Vital Signs Temp Pulse Resp BP Pulse Ox 36.2 C L 78 16 125/55 L 100 07/28/22 10:26 07/28/22 10:26 07/28/22 10:26 07/28/22 10:26 07/28/22 10:26 Point of Care Results Point of Care Results: POC- Test(urine) Negative 07/28/22 10:35 Lab Results Blood Type / Crossmatch: No Data to Display Complete Blood Count: No Data to Display Complete Metabolic Panel: No Data to Display Liver Function Panel: No Data to Display Coagulation Panel: No Data to Display Cardiac Panel: No Data to Display Arterial Blood Gas: No Data to Display Venous Blood Gas: No Data to Display Pancreas Panel: No Data to Display Thyroid Panel: No Data to Display Infectious Disease: No Data to Display Blood Cultures: No Data to Display Toxicology Panel: No Data to Display Panel: No Data to Display Anesthesia Assessment and Plan Anesthesia History Personal History: No History of Anesthesia Complications Family History: No Family History of Anesthesia Complications Exercise Tolerance Exercise Tolerance: Metabolic Equivalents>4 Pertinent Negatives Pertinent Negatives: No Symptoms of GERD, No Major Cardiovascular Symptoms or Complaints and No Major Pulmonary Symptoms or Complaints Cardiac & Pulmonary Exam Cardiac Exam: Normal S1/S2 Heart Sounds Pulmonary Exam: Clear Bilateral Breath Sounds Implantable Cardiac Device Does patient have a Pacemaker or an ICD?: No Airway Exam Known Difficult Airway: No Mallampati Class: 1 Mouth Opening: Normal (> 3cm) Thyromental Distance: Greater than 3 cm Neck Range of Motion: Full ROM Neck Circumference: Normal Teeth Condition: Normal Dentition, Removable Dentures/Plates Upper and Edentulous ASA Classification ASA Score: ASA 2 Emergency Case?: No NPO Status NPO Status: NPO Clears >2 hours, Solids >8 hours Status Status: Negative HCG Anesthesia Plan Resuscitation Status: Full Code Anesthesia Technique: General Anesthesia Airway Planned: Natural Airway Monitors Used: Standard Monitors
--- NOTE | 2022-07-28 13:11 | ESO_PTH ---
PATIENT: Alba Russell LOC: [facility] U#:[id number] AGE/SX: 47/F ROOM: RE07/28/[address]: Lalo Hayden MD : [id number] BED: DIS: 07/28/2022 SPEC #: [id number] RECD: 07/28/22 15:43 STATUS: DAMI RE #: [id number] MARI ADOLORES: 07/28/22 13:[address]: Lalo Hayden DEPT: Surgical Specimen RECD BY: Annette Hutchinson ENTERED: 07/28/22 15:44 SP TYPE: Lluviao YENIFER DR: Kathleen Haro Tissues: 1 - ESOPHAGUS BIOPSY Procedures: GROSS AND MICRO LEVEL 4 Comments: [id number]
[2022-07-28 13:25] VITALS: BP 109/64; PULSE 83; RESP 16; TEMP 36.3; O2SAT 100
--- NOTE | 2022-07-28 13:31 | W.ANESPOSTOP ---
Postoperative Evaluation Date, Time and Location Date Performed: 07/28/22 Time Performed: 13:31 Patient Location: Day Surgery Unit Vital Signs Most Recent Imported Vital Signs: Most Recent Vital Signs Temp Pulse Resp BP Pulse Ox 36.3 C L 83 16 109/64 100 07/28/22 13:25 07/28/22 13:25 07/28/22 13:25 07/28/22 13:25 07/28/22 13:25 Pain Score Most Recent Pain Score: Most Recent Pain Score Pain Level 0 07/28/22 13:25 Assessment Mental Status: Awake (Alert & Oriented to Patient Baseline) Airway and Respiratory Function: Patent airway with normal (patient baseline) respiratory exam Cardiovascular Function: Hemodynamically Stable Hydration Status: Adequately Hydrated Nausea & Vomiting: No Nausea or Vomiting Pain: Pt. Denies Any Pain Peripheral Nerve Block: Patient did not receive a nerve block
[2022-07-28 13:51] VITALS: BP 100/77; PULSE 72; RESP 18; TEMP 36.3; O2SAT 100
== END 2022-07-28 14:17 | disposition home or self-care (01) ==
PROVIDERS: PCP Family Medicine; Visit Provider Surgery
PROC: 0DJ68ZZ Inspection of Stomach, Via Natural or Artificial Opening Endoscopic (ICD-10-PCS; CPT 43235; principal; 2022-07-28 12:00)
DX: R13.10 Dysphagia, unspecified (principal); K21.9 Gastro-esophageal reflux disease without esophagitis; K22.89 Other specified disease of esophagus
CPT/HCPCS: 43239; 88305